=== PATIENT | female | born 1990 | race Hispanic/Latino ===

== ENCOUNTER 2017-03-08 22:03 | Emergency (ER) | payer SELFPAY ==
[2017-03-08] MEDS ORDERED: ONDANSETRON HCL 4 MG/2 ML VIAL ONE (22:28)
[2017-03-08] MEDS ORDERED: HYDROmorphone HCL 1 MG/ML SYR ONE (22:58)
[2017-03-08 23:00] LABS: BASOPHILS 0.2 % (0.0-2.0); EOSINOPHILS 1.4 % (0.0-6.0); EOSINOPHILS# 0.1 X 10^3uL (0.0-0.4); HEMATOCRIT 40.7 % (36.0-48.0); HEMOGLOBIN 13.7 g/dL (12.0-16.0); LYMPHOCYTES 49.6 % (20.0-40.0); MEAN CELL VOLUME 86.4 fL (80.0-100.0); MEAN CORPUS. HGB CONCENTRATION 33.7 g/dL (32.0-36.0); MEAN CORPUSCULAR HEMOGLOBIN 29.1 pg (29.0-35.0); MEAN PLATELET VOLUME 7.5 fL (7.4-10.4); MONOCYTES 5.4 % (2.0-10.0); MONOCYTES# 0.5 X 10^3uL (0.2-1.0); NEUTROPHILS 43.4 % (54.0-75.0); NEUTROPHILS# 4.1 X 10^3uL (2.6-6.7); RED BLOOD COUNT 4.71 X 10^6uL (4.20-6.10); RED CELL DISTRIBUTION WIDTH 13.1 % (11.5-14.5); WHITE BLOOD COUNT 9.5 X 10^3uL (3.9-10.7)
[2017-03-08 23:02] LABS: LYMPHOCYTES# 4.8 X 10^3uL (0.8-3.8)
[2017-03-08] MEDS ORDERED: oxyCODONE/APAP 5/325 MG PREPAC 1 TAB TABLET PO ONE (23:50)
[2017-03-08] MEDS ORDERED: KETOROLAC TROMETHAMINE 30 MG/ML VIAL ONE (23:54)
[2017-03-09] MEDS ORDERED: HYDROmorphone HCL 1 MG/ML SYR ONE ×2 (01:26)
--- NOTE | 2017-03-09 02:29 | ER NURSING DOCUMENTATION ---
Nurse's Notes [facility] Name:Farzana Durham Age:26 yrs Sex:Female :1990 Arrival Date:03/08/2017 Time:22:03 Bed3 Private MD:Sarah Stout Diagnosis:Inevitable Miscarriage Presentation: 03/08 22:06 Acuity: ROSIE 3 mk2 22:16 Notified ED Physician of Dr. Cifuentes notified. mk2 22:23 Presenting complaint: Patient states: Pt states she has been seeing Dr. Clemente for spotting mk2 and cramping with a new (estimated) 3/4 week . This is the patient's second . Pt denies heavy bleeding but suprapubic pain has been increasing today and is currently a 9/10. Pt has not taken anything for pain prior to arrival in the E.D. Pt denies vomiting and diarrhea but admits to nausea. Pt also states her " counts have been low per her O.B. Transition of care: Home. Risk considerations:. Notified ED Physician of. 22:23 Method Of Arrival: Wheelchair mk2 Triage Assessment: 22:26 General: Appears distressed, Behavior is crying. Pain: Complains of pain in suprapubic mk2 area Pain currently is 9 out of 10 on a pain scale. Neuro: No deficits noted. Cardiovascular: Rhythm is sinus tachycardia. Respiratory: Breath sounds are clear bilaterally. GI: No deficits noted. Reports lower abdominal pain, nausea, since increasing today. : Denies burning with urination. Derm:. 03/09 02:27 : Reports vaginal bleeding that is spotty since 7 days. 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 None - PMHx: None; - PSHx: None; - Tetanus: < 10 years. - Ebola Screening: : Patient negative for fever greater than or equal to 101.5 degrees Fahrenheit, and additional compatible Ebola Virus Disease symptoms. Patient denies exposure to infectious person. Patient denies travel to an Ebola-affected area in the 21 days before illness onset. No symptoms or risks identified at this time. . - Immunization history: Flu Vaccine < 1 year. - Social history: Smoking status: Patient uses tobacco products, current some day smoker. Patient/guardian denies using alcohol, street drugs. Screenin:29 Infectious Disease Risk None. Abuse screen: Denies threats or abuse. Nutritional 2 screening: No deficits noted. Assessment: 22:29 See Triage Assessment done by same RN. mk2 03/09 02:27 : mk2 Vital Signs: 03/08 22:07 BP 154 / 92; Pulse 109; Resp 20; Temp 97.8(O); Pulse Ox 98% on R/A; Weight 67.59 kg arc (R); Height 5 ft. 3 in. (160.02 cm) (R); Pain 9/10; 22:57 BP 105 / 62; Pulse 64; Resp 13; Pulse Ox 99% on 2 lpm NC; Pain 6/10; mk2 23:05 Pain 4/10; mk2 03/09 00:59 Pulse Ox 99% ; mk2 00:59 BP 106 / 64; Pulse 78; Resp 14; Pulse Ox 97% on 2 lpm NC; Pain 6/10; mk2 01:14 Pulse Ox 100% ; mk2 01:14 BP 109 / 62; Pain 7/10; mk2 01:39 Pulse Ox 99% ; mk2 01:43 BP 94 / 44 (auto/); mk2 01:59 Pulse Ox 98% ; mk2 01:59 Pain 4/10; mk2 02:00 BP 103 / 56 (auto/); mk2 03/08 22:07 Body Mass Index 26.39 (67.59 kg, 160.02 cm) arc ED Course: 03/08 22:05 Patient arrived in ED. ma1 22:05 Sarah Stout MD is Private Physician. ma1 22:06 Delores Burger, RN is Primary Nurse. mk2 22:06 Triage completed. mk2 22:09 Gray Cifuentes MD is Attending Physician. sc 22:29 Inserted peripheral IV: 20 gauge in right antecubital area and blood collected. mk2 22:29 Arm band placed on Bed in low position Call Light in Reach Gowned HOB Elevated Side mk2 rails up x1. 22:29 Valuables Remains with patient. Pulse ox on. NIBP on. Warm blanket given. mk2 22:45 Assist Provider Assist provider with pelvic exam:. mk2 22:53 RH positive reported by Marina in the lab. mk2 23:00 Oxygen Oxygen administration via nasal cannula @ 2L/min. mk2 23:07 Resting quietly. mk2 23:41 Willie Castellano MD is Referral Physician. sc 03/09 01:02 Appears tearful. Pt states she is unable to get out of bed and go home due to pain. MD knott is aware. Will monitor pt. 01:59 Resting quietly. Pt now asks to go home. mk2 Administered Medications: 03/08 22:22 Drug: NS 0.9% 1000 ml; Route: IV; Rate: 1000 bolus; Site: right antecubital; mk2 03/09 00:30 Follow up: IV Status: Completed infusion; IV Intake: 1000ml 2 03/08 22:23 Drug: Zofran 4 mg; Route: IVP; Infused Over: 2 mins; Site: right antecubital; mk2 22:44 Follow up: Response: No adverse reaction; Nausea is decreased mk2 22:53 Drug: Dilaudid 1 mg; Route: IVP; Site: right antecubital; mk2 22:57 Follow up: Response: Pain is decreased mk2 23:44 CANCELLED (Duplicate Order): Toradol 30 mg IVP once mk2 23:53 Drug: Toradol 30 mg; Route: IVP; Site: right antecubital; mk2 23:54 Follow up: Response: No adverse reaction 2 03/09 00:30 Drug: Dilaudid 1 mg; Route: IVP; Site: right antecubital; mk2 01:12 Follow up: Response: Pain is decreased mk2 00:43 Drug: HYDROcodone-acetaminophen (5mg/325 mg) 1-2 tabs 1 tabs; Route: PO; mk2 00:43 Follow up: Response: Pharmacy closed - take home med pack mk2 00:58 Drug: methotrexate 85 mg; Route: IM; Site: left gluteus; mk2 01:12 Follow up: Response: No adverse reaction mk2 01:16 Drug: Dilaudid 1 mg; Route: IVP; Site: right antecubital; mk2 01:42 Follow up: Response: Pain is decreased mk2 01:30 Drug: NS 0.9% 1000 ml; Route: IV; Rate: bolus; Site: right antecubital; mk2 02:16 Follow up: IV Status: Completed infusion; IV Intake: 1000ml mk2 02:25 Drug: Zofran 4 mg; Route: IVP; Infused Over: 2 mins; Site: right antecubital; mk2 02:25 Follow up: Response: No adverse reaction mk2 Intake: 00:30 IV: 1000ml; Total: 1000ml. mk2 02:16 IV: 1000ml; Total: 2000ml. mk2 Outcome: 03/08 23:42 Discharge ordered by . ct 03/09 01:59 Discharge instructions given to patient, family, Instructed on discharge instructions, mk2 follow up and referral plans. medication usage, no drinking with medication, no driving heavy equipment. Prescriptions given X 1. IV D/Micheal 02:25 Discharged to home via wheelchair. mk2 02:25 Condition: stable 02:25 Discharge Assessment: Pt remains in pain and nauseated and appears pale but states she wants and is ready to go home. Pt able to ambulate around the room with assistance. Boyfriend states he will be with her throughout the night. 02:29 Patient left the ED. mk2 Signatures: Gray Cifuentes MD MD sc Kruger, Meg, RN RN mk2 Natalie Cifuentes, Susan [facility]
--- NOTE | 2017-03-09 02:29 | ER PHYSICIAN DOCUMENTATION ---
Physician Documentation [facility] Name:Farzana Durham Age:26 yrs Sex:Female :1990 Arrival Date:03/08/2017 Time:22:03 Bed3 Private MD:Sarah Stout ED, Scott Disposition: 03/08/17 23:42 Discharged to Home/Self Care. Impression: Inevitable Miscarriage. - Condition is Good. - Discharge Instructions: MISCARRIAGE Inevitable - , Missed (Inevitable). - Prescriptions for Hydrocodone- Acetaminophen 5-325 mg Oral Tablet - take 1 tablet by ORAL route every 6 hours As needed; 20 tablet. - Medical Reconciliation form form. - Follow up: Willie Castellano MD; When: 2 - 3 days; Reason: Continuance of care. - Problem is new. - Symptoms have improved. HPI: 03/08 22:45 This 26 yrs old Female presents to ER via Wheelchair with complaints of sc Vaginal Bleeding, Abdominal Pain. 22:48 The patient presents with pelvic pain, that is located in/on the suprapubic area. sc Onset: The symptoms/episode began/occurred 4 day(s) ago. Modifying factors: The symptoms are alleviated by nothing. Associated signs and symptoms: Pertinent positives: vaginal bleeding, Pertinent negatives: dysuria, fever, hematuria, urinary frequency. Ectopic Risk: No risk factors noted. recent iud. Severity of symptoms: At their worst the symptoms were severe. The patient is sexually active, reportedly has a single partner. The patient's method of control includes BCP. 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 None - PMHx: None; - PSHx: None; - Tetanus: < 10 years. - Ebola Screening: : Patient negative for fever greater than or equal to 101.5 degrees Fahrenheit, and additional compatible Ebola Virus Disease symptoms. Patient denies exposure to infectious person. Patient denies travel to an Ebola-affected area in the 21 days before illness onset. No symptoms or risks identified at this time. . - Immunization history: Flu Vaccine < 1 year. - Social history: Smoking status: Patient uses tobacco products, current some day smoker. Patient/guardian denies using alcohol, street drugs. ROS: 22:50 Positive for pelvic pain, vaginal bleeding, Negative for foul smelling urine, sc vaginal discharge. 22:50 Constitutional: Negative for fever, chills, and weight loss. sc Eyes: Negative for injury, pain, redness, and discharge. ENT: Negative for injury, pain, and discharge. Neck: Negative for injury, pain, and swelling. Cardiovascular: Negative for chest pain, palpitations, and edema. Respiratory: Negative for shortness of breath, cough, wheezing, and pleuritic chest pain. Abdomen/GI: Negative for abdominal pain, nausea, vomiting, diarrhea, and constipation. Back: Negative for injury and pain. MS/Extremity: Negative for injury and deformity. Skin: Negative for injury, rash, and discoloration. 22:50 Neuro: Negative for headache, weakness, numbness, tingling, and seizure. Exam: Constitutional: This is a well developed, well nourished patient who is awake, alert, and in no acute distress. Head/Face: Normocephalic, atraumatic. Eyes: Pupils equal round and reactive to light, extra-ocular motions intact. Lids and lashes normal. Conjunctiva and sclera are non-icteric and not injected. Cornea within normal limits. Periorbital areas with no swelling, redness, or edema. ENT: Nares patent. No nasal discharge, no septal abnormalities noted. Tympanic membranes are normal and external auditory canals are clear. Oropharynx with no redness, swelling, or masses, exudates, or evidence of obstruction, uvula midline. Mucous membranes moist. Neck: Trachea midline, no thyromegaly or masses palpated, and no cervical lymphadenopathy. Supple, full range of motion without nuchal rigidity, or vertebral point tenderness. No meningismus. Chest/axilla: Normal chest wall appearance and motion. Nontender with no deformity. No lesions are appreciated. Cardiovascular: Regular rate and rhythm with a normal S1 and S2. No gallops, murmurs, or rubs. Normal PMI, no JVD. No pulse deficits. Respiratory: Lungs have equal breath sounds bilaterally, clear to auscultation and percussion. No rales, rhonchi or wheezes noted. No increased work of breathing, no retractions or nasal flaring. 22:51 Back: No spinal tenderness. No costovertebral tenderness. Full range of motion. sc 22:51 Abdomen/GI: Inspection: abdomen appears normal, Bowel sounds: normal, Palpation: moderate abdominal tenderness, in the suprapubic area. 22:51 : CVA tenderness, is absent, Pelvic Exam: External exam: is normal, bimanual exam reveals cervical motion tenderness, os that is closed, uterine tenderness, right adnexal tenderness, left adnexal tenderness, no adnexal mass on right, no adnexal mass on left. Vital Signs: 22:07 BP 154 / 92; Pulse 109; Resp 20; Temp 97.8(O); Pulse Ox 98% on R/A; Weight 67.59 kg arc (R); Height 5 ft. 3 in. (160.02 cm) (R); Pain 9/10; 22:57 BP 105 / 62; Pulse 64; Resp 13; Pulse Ox 99% on 2 lpm NC; Pain 6/10; mk2 23:05 Pain 4/10; mk2 03/09 00:59 Pulse Ox 99% ; mk2 00:59 BP 106 / 64; Pulse 78; Resp 14; Pulse Ox 97% on 2 lpm NC; Pain 6/10; mk2 01:14 Pulse Ox 100% ; mk2 01:14 BP 109 / 62; Pain 7/10; mk2 01:39 Pulse Ox 99% ; mk2 01:43 BP 94 / 44 (auto/); mk2 01:59 Pulse Ox 98% ; mk2 01:59 Pain 4/10; mk2 02:00 BP 103 / 56 (auto/); mk2 03/08 22:07 Body Mass Index 26.39 (67.59 kg, 160.02 cm) arc MDM: 03/08 22:26 Patient medically screened. sc 22:52 Differential diagnosis: ectopic , inevitable Ab, pelvic inflammatory disease, sc ruptured ectopic . Data reviewed: vital signs, nurses notes. Data reviewed: old medical records, lab test result(s), and as a result, I will continue to observe the patient, prescribe pain medication. Counseling: I had a detailed discussion with the patient and/or guardian regarding: the historical points, exam findings, and any diagnostic results supporting the discharge/admit diagnosis, lab results, the need for outpatient follow up. 23:41 Physician consultation: Willie Castellano MD was called at 23:41, and will see patient sc in ED, immediately. 03/08 22:54 Order name: HCG, QUANTITATIVE; Complete Time: 22:56 EDMS 03/08 22:56 Interpretation: Abnormal: HCG, QUANTITATIVE 52. de 03/08 23:03 Order name: CBC AUTO DIF, MDIF/RMOR IF IND; Complete Time: 23:04 EDMS 03/08 23:04 Interpretation: Normal. de 03/08 23:00 Order name: Oxygen; Complete Time: 23:00 2 Dispensed Medications: 22:22 Drug: NS 0.9% 1000 ml; Route: IV; Rate: 1000 bolus; Site: right antecubital; 2 03/09 00:30 Follow up: IV Status: Completed infusion; IV Intake: 1000ml 2 03/08 22:23 Drug: Zofran 4 mg; Route: IVP; Infused Over: 2 mins; Site: right antecubital; mk2 22:44 Follow up: Response: No adverse reaction; Nausea is decreased mk2 22:53 Drug: Dilaudid 1 mg; Route: IVP; Site: right antecubital; mk2 22:57 Follow up: Response: Pain is decreased mk2 23:44 CANCELLED (Duplicate Order): Toradol 30 mg IVP once mk2 23:53 Drug: Toradol 30 mg; Route: IVP; Site: right antecubital; mk2 23:54 Follow up: Response: No adverse reaction 2 03/09 00:30 Drug: Dilaudid 1 mg; Route: IVP; Site: right antecubital; mk2 01:12 Follow up: Response: Pain is decreased mk2 00:43 Drug: HYDROcodone-acetaminophen (5mg/325 mg) 1-2 tabs 1 tabs; Route: PO; mk2 00:43 Follow up: Response: Pharmacy closed - take home med pack mk2 00:58 Drug: methotrexate 85 mg; Route: IM; Site: left gluteus; mk2 01:12 Follow up: Response: No adverse reaction mk2 01:16 Drug: Dilaudid 1 mg; Route: IVP; Site: right antecubital; mk2 01:42 Follow up: Response: Pain is decreased mk2 01:30 Drug: NS 0.9% 1000 ml; Route: IV; Rate: bolus; Site: right antecubital; mk2 02:16 Follow up: IV Status: Completed infusion; IV Intake: 1000ml mk2 02:25 Drug: Zofran 4 mg; Route: IVP; Infused Over: 2 mins; Site: right antecubital; mk2 02:25 Follow up: Response: No adverse reaction mk2 Signatures: Gray Cifuentes MD MD sc Kruger, Meg, RN RN mk2
[2017-03-09] MEDS ORDERED: ONDANSETRON HCL 4 MG/2 ML VIAL ONE (02:30)
== END 2017-03-09 02:29 | disposition home or self-care (01) ==
LOC: ER 22:03
DX: O20.0 Threatened abortion (principal)
CPT/HCPCS: 84702; 85025; 96361; 96372; 96374; 96375; 96376; 99284; J1170; J1885; J2405

== ENCOUNTER 2017-03-10 19:01 | Emergency (ER) | payer SELFPAY ==
[2017-03-10 19:19] LABS: BASOPHIL# 0.1 X 10^3uL (0.0-0.1); BASOPHILS 0.6 % (0.0-2.0); EOSINOPHILS 0.8 % (0.0-6.0); EOSINOPHILS# 0.1 X 10^3uL (0.0-0.4); HEMATOCRIT 36.5 % (36.0-48.0); HEMOGLOBIN 12.6 g/dL (12.0-16.0); LYMPHOCYTES 43.4 % (20.0-40.0); LYMPHOCYTES# 4.3 X 10^3uL (0.8-3.8); MEAN CELL VOLUME 86.1 fL (80.0-100.0); MEAN CORPUS. HGB CONCENTRATION 34.4 g/dL (32.0-36.0); MEAN CORPUSCULAR HEMOGLOBIN 29.6 pg (29.0-35.0); MEAN PLATELET VOLUME 7.4 fL (7.4-10.4); MONOCYTES 3.6 % (2.0-10.0); MONOCYTES# 0.4 X 10^3uL (0.2-1.0); NEUTROPHILS 51.6 % (54.0-75.0); RED BLOOD COUNT 4.24 X 10^6uL (4.20-6.10); RED CELL DISTRIBUTION WIDTH 12.9 % (11.5-14.5); WHITE BLOOD COUNT 9.9 X 10^3uL (3.9-10.7)
[2017-03-10] MEDS ORDERED: HYDROmorphone HCL 1 MG/ML SYR ONE ×2 (19:52→20:09)
[2017-03-10] MEDS ORDERED: KETOROLAC TROMETHAMINE 30 MG/ML VIAL ONE (20:28)
[2017-03-10] MEDS ORDERED: oxyCODONE/APAP 5/325 MG PREPAC 1 TAB TABLET PO ONE (20:28)
[2017-03-10] MEDS ORDERED: ONDANSETRON HCL 4 MG/2 ML VIAL ONE (20:34)
--- NOTE | 2017-03-10 20:34 | ER NURSING DOCUMENTATION ---
Nurse's Notes [facility] Name:Farzana Durham Age:26 yrs Sex:Female :1990 Arrival Date:03/10/2017 Time:19:01 Bed3 Private MD:Willie Castellano Diagnosis:Inevitable Miscarriage Presentation: 03/10 19:08 Acuity: ROSIE 3 rh 19:08 Presenting complaint: Patient states: Pt is unsure how she is currently. Pt rh states she had labs done by DR. Clemente last Friday which showed very low quantitative. She said she had a shot last Friday from Dr. Clemente to induce an inevitable . Pt c/o lower uterine/abdominal pain. Pt has had very mild bleeding when she pees. Transition of care: Home. 19:08 Method Of Arrival: Private Vehicle Triage Assessment: 19:11 General: Appears in no apparent distress, Behavior is cooperative. rh 19:12 Pain: Complains of pain in suprapubic area. EENT: Oral mucosa is moist. Neuro: Level of rh Consciousness is awake, alert, obeys commands, Reports dizziness. Cardiovascular: Capillary refill < 3 seconds Chest pain is denied. Respiratory: Airway is patent Respiratory effort is even, unlabored, Respiratory pattern is regular, symmetrical. GI: Abdomen is non- distended Denies nausea. : Reports vaginal bleeding that is bright red light flow spotty. Derm: Skin is intact, is healthy with good turgor, Skin is pink, warm & dry. 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 None - PMHx: NONE; Inevitable Miscarriage (March 08, 2017); - PSHx: NONE; - Tetanus: < 10 years. - Ebola Screening: : Patient negative for fever greater than or equal to 101.5 degrees Fahrenheit, and additional compatible Ebola Virus Disease symptoms. - Immunization history: Flu Vaccine < 1 year. - Social history: Smoking status: Patient states former smoker of tobacco. Screenin:15 Infectious Disease Risk None. Abuse screen: Denies threats or abuse. Denies injuries rh from another. Nutritional screening: No deficits noted. Assessment: 19:15 See Triage Assessment done by same RN. 19:15 Reassessment: DR. Clemente here to assess patient . rh Vital Signs: 19:13 BP 106 / 79 Standing; Pulse 72; Resp 16; Temp 98.1(O); Pulse Ox 98% on R/A; Weight rh 67.59 kg; Height 5 ft. 3 in. (160.02 cm); Pain 8/10; 19:13 BP 116 / 78 Sitting; Pulse 75; rh 19:13 BP 120 / 72 Supine; Pulse 74; rh 19:59 BP 106 / 63; Pulse 69; Resp 17; Pulse Ox 95% on R/A; Pain 8/10; rh 20:05 Pulse 68; Resp 16; Pulse Ox 98% on 1 lpm NC; Pain 5/10; rh 20:33 BP 103 / 74; Pulse 71; Resp 15; Pulse Ox 94% on R/A; Pain 5/10; rh 19:13 Body Mass Index 26.39 (67.59 kg, 160.02 cm) rh ED Course: 19:00 Notified ED Physician of patient's arrival and chief complaint. Dr. Kinsey notified. rh 19:02 Patient arrived in ED. ds 19:03 Willie Castellano MD is Private Physician. ds 19:06 Larry Kinsey MD is Attending Physician. adolph 19:08 Lula Chan is Primary Nurse. rh 19:08 Triage completed. rh 19:12 Labs drawn. (by ED staff). Sent per order to lab. Inserted peripheral IV: 18 gauge in lc left antecubital area and blood collected. 19:15 Valuables Remains with patient Patient has correct armband on for positive rh identification. Placed in gown. Bed in low position. Call light in reach. Side rails up X 1. Family accompanied patient. 20:13 Willie Castellano MD is Referral Physician. jm 20:32 Discontinued IV intact, bleeding controlled, pressure dressing applied, No mv redness/swelling at site. Administered Medications: 19:47 Drug: Dilaudid 0.5 mg; Route: IVP; Site: left antecubital; rh 19:59 Follow up: Response: Pain is unchanged, physician notified rh 19:59 Drug: Dilaudid 0.5 mg; Route: IVP; Site: left antecubital; rh 20:05 Follow up: Response: Pain is decreased rh 20:25 Drug: Toradol 30 mg; Route: IVP; Site: left antecubital; mv 20:33 Follow up: Response: No adverse reaction; Pain is decreased 20:28 Drug: Zofran 4 mg; Route: IVP; Infused Over: 2 mins; Site: left antecubital; mv 20:33 Follow up: Response: Nausea is decreased 20:31 Drug: Percocet Tablet (5 mg-325 mg) 6 tabs; {Note: given for patient to take at home .} mv Route: PO; 20:33 Follow up: Response: Pharmacy closed - take home med pack Outcome: 20:14 Discharge ordered by . 20:33 Discharged to home ambulatory. 20:33 Condition: improved 20:33 Discharge Assessment: Patient awake, alert and oriented x 3. No cognitive and/or functional deficits noted. Patient verbalized understanding of disposition instructions. 20:33 Discharge instructions given to patient, Parent Instructed on discharge instructions, follow up and referral plans. medication usage, Demonstrated understanding of instructions. 20:33 IV D/Micheal 20:34 Patient left the ED. 03/11 15:59 Discharge F/U Call: Unable to reach: no answer Overall Care on a scale of 1-10 with 10 being the best care, you rate our care as: Other comments: DID HAVE APPT WITH DR Clemente TODAY What is the one thing you feel we could do to improve? Signatures: Sussy Franks RN RN lc Srot, Deidra, Reg Reg ds Meyer, John, MD MD jm Hofsess, Rachel rh vogel, margaux
--- NOTE | 2017-03-10 20:34 | ER PHYSICIAN DOCUMENTATION ---
Physician Documentation [facility] Name:Farzana Durham Age:26 yrs Sex:Female :1990 Arrival Date:03/10/2017 Time:19:01 Bed3 Private MD:Willie Castellano ED, John Disposition: 03/10/17 20:14 Discharged to Home/Self Care. Impression: Inevitable Miscarriage. - Condition is Fair. - Discharge Instructions: MISCARRIAGE Inevitable - , Missed (Inevitable). - Medical Reconciliation form form. - Follow up: Willie Castellano MD; When: Tomorrow; Reason: Continuance of care. - Problem is an acute exacerbation. - Symptoms have improved. HPI: 03/10 19:25 This 26 yrs old Female presents to ER via Private Vehicle with complaints of jm Abdominal Pain. 19:25 The patient presents with abdominal pain in the lower abdomen. Onset: The jm symptoms/episode began/occurred 3 day(s) ago, and became worse today. The symptoms do not radiate. Associated signs and symptoms: Pertinent negatives: fever, vomiting, vomiting blood. The symptoms are described as sharp. Modifying factors: the symptoms are aggravated by nothing. Severity of pain: in the emergency department the pain is unchanged. Risk factors for ectopic : intrauterine device (IUD) use, Dr. Clemente is working here up. 19:[address] Clemente who has been following her HCG quants to come in for eval and labs. Pt jm reports no vag bleeding but does have some cramping. LMP was early January. . 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 None - PMHx: NONE; Inevitable Miscarriage (March 08, 2017); - PSHx: NONE; - Tetanus: < 10 years. - Ebola Screening: : Patient negative for fever greater than or equal to 101.5 degrees Fahrenheit, and additional compatible Ebola Virus Disease symptoms. - Immunization history: Flu Vaccine < 1 year. - Social history: Smoking status: Patient states former smoker of tobacco. Vital Signs: 19:13 BP 106 / 79 Standing; Pulse 72; Resp 16; Temp 98.1(O); Pulse Ox 98% on R/A; Weight rh 67.59 kg; Height 5 ft. 3 in. (160.02 cm); Pain 8/10; 19:13 BP 116 / 78 Sitting; Pulse 75; rh 19:13 BP 120 / 72 Supine; Pulse 74; rh 19:59 BP 106 / 63; Pulse 69; Resp 17; Pulse Ox 95% on R/A; Pain 8/10; rh 20:05 Pulse 68; Resp 16; Pulse Ox 98% on 1 lpm NC; Pain 5/10; rh 20:33 BP 103 / 74; Pulse 71; Resp 15; Pulse Ox 94% on R/A; Pain 5/10; rh 19:13 Body Mass Index 26.39 (67.59 kg, 160.02 cm) rh MDM: 19:06 Patient medically screened. 19:28 ED course: AT this point in the encounter, Dr. Clemente has arrived and told me not to see this pt. . 03/10 19:22 Order name: CBC AUTO DIF, MDIF/RMOR IF IND EDMS 03/10 19:46 Order name: HCG, QUANTITATIVE EDMS 03/10 19:11 Order name: Iv Saline Lock; Complete Time: 19:11 rh 03/10 19:47 Order name: Pulse Ox Continuous; Complete Time: 19:47 rh 03/10 20:04 Order name: Oxygen; Complete Time: 20:05 rh Dispensed Medications: 19:47 Drug: Dilaudid 0.5 mg; Route: IVP; Site: left antecubital; rh 19:59 Follow up: Response: Pain is unchanged, physician notified rh 19:59 Drug: Dilaudid 0.5 mg; Route: IVP; Site: left antecubital; rh 20:05 Follow up: Response: Pain is decreased rh 20:25 Drug: Toradol 30 mg; Route: IVP; Site: left antecubital; mv 20:33 Follow up: Response: No adverse reaction; Pain is decreased rh 20:28 Drug: Zofran 4 mg; Route: IVP; Infused Over: 2 mins; Site: left antecubital; mv 20:33 Follow up: Response: Nausea is decreased rh 20:31 Drug: Percocet Tablet (5 mg-325 mg) 6 tabs; {Note: given for patient to take at home .} mv Route: PO; 20:33 Follow up: Response: Pharmacy closed - take home med pack Signatures: Larry Kinsey MD MD jm Hofsess, Rachel rh vogel, margaux mv
== END 2017-03-10 20:34 | disposition home or self-care (01) ==
LOC: ER 19:01
DX: O20.0 Threatened abortion (principal)
CPT/HCPCS: 84702; 85025; 96374; 96375; 99284; J1170; J1885; J2405

== ENCOUNTER 2017-03-11 10:13 | Observation (INO) | payer SELFPAY ==
[2017-03-11] MEDS ORDERED: HYDROmorphone HCL 1 MG/ML SYR IV PRN ×6 (10:21→16:44)
[2017-03-11] MEDS ORDERED: ONDANSETRON HCL 4 MG/2 ML VIAL IV PRN ×7 (10:22→17:26)
[2017-03-11] MEDS ORDERED: ACETAMINOPHEN 1,000 MG/100 ML VIAL IV SCH ×5 (10:30→22:30)
[2017-03-11] MEDS ORDERED: DEXTROSE 5% LACTATED RINGERS 1,000 ML IV SCH ×5 (11:00→16:44)
[2017-03-11] MEDS ORDERED: LACTATED RINGERS 1,000 ML IV ONE (11:00)
[2017-03-11] MEDS ORDERED: MIDAZOLAM HCL 2 MG/2 ML SYR IV ONE ×3 (14:56→15:09)
[2017-03-11] MEDS ORDERED: FENTANYL 100 MCG/2 ML VIAL IV ONE (14:56)
[2017-03-11] MEDS ORDERED: LIDOCAINE HCL 1% 20 ML VIAL SUBCUT ONE ×4 (14:56→16:44)
[2017-03-11] MEDS ORDERED: FAMOTIDINE IN SALINE, ISO-OSM 20 MG/50 ML PIGGYBACK IV SCH ×3 (15:00→16:44)
[2017-03-11] MEDS ORDERED: LACTATED RINGERS 1,000 ML IV SCH ×5 (15:00→17:00)
[2017-03-11] MEDS: FENTANYL 100 MCG/2 ML VIAL IV ONE ×2 (15:01→15:35)
[2017-03-11] MEDS ORDERED: MIDAZOLAM HCL 2 MG/2 ML VIAL ONE (15:16)
[2017-03-11] MEDS ORDERED: PHENYLEPHRINE HCL 10,000 MCG/ML VIAL ONE (15:27)
[2017-03-11] MEDS ORDERED: SUCCINYLCHOLINE CHLORIDE 200 MG/10 ML VIAL ONE (15:27)
[2017-03-11] MEDS ORDERED: EPHEDrine SULFATE 50 MG/ML VIAL ONE (15:27)
[2017-03-11] MEDS ORDERED: NORMAL SALINE FLUSH 20 ML ONE ×2 (15:27→16:17)
[2017-03-11] MEDS ORDERED: ROCURONIUM BROMIDE 50 MG/5 ML VIAL IV ONE (15:28)
[2017-03-11] MEDS ORDERED: VASOPRESSIN 20 UNITS/ML VIAL ONE (16:01)
[2017-03-11 16:27] LABS: ABO GROUP TYPE A; ANTIBODY SCREEN NEGATIVE; RH TYPE POSITIVE
[2017-03-11] MEDS ORDERED: SUGAMMADEX SODIUM 200 MG/2 ML VIAL IV ONE (16:39)
[2017-03-11] MEDS ORDERED: FENTANYL 100 MCG/2 ML VIAL IV PRN (16:42)
[2017-03-11] MEDS ORDERED: MORPHINE SULFATE 10 MG/ML SYR IV PRN (16:42)
--- NOTE | 2017-03-11 17:18 | PROCEDURE NOTE: GYN ---
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 Post-op diagnosis: other (Left tubal ) Procedure: Laparoscopic treatment of ectopic Findings: 50 ml of blood and clot in pelvis. POC attached to but not inplanted into left ovary, edema of left fallopian tube without ecchymosis, rupture or bleeding. No active bleeding at time of surgery. Anesthesia Type: General Physician: YANETH HYMAN Estimated Blood Loss: 50 Pathology: sent Sponge and instrument counts: correct Condition: stable Disposition: PACU Narrative: The patient was taken to the operating theater and placed on the operating table. General endotracheal anesthesia was induced. She is placed in dorsal lithotomy position using the Eliud stirrups. Her abdomen, vagina and perineum were prepped, her bladder drained with straight catheter, she is draped in sterile fashion. A Hulka tenaculum is placed in the cervix. An umbilical skin incision is made and carried sharply to the fascia and the fascia is scored. A 5 mm trocar is inserted into the abdominal cavity. The abdomen is insufflated with carbon dioxide. A suprapubic stab wound was made through which a second 5 mm trocar is entered into the abdominal cavity under direct visualization. The pelvis is inspected, with findings as above. After close irrigation and aspiration of the blood in the pelvis I noted the clot and tissue adhering to the left ovary. There was no evidence of tubal rupture and no bleeding from the fimbria of the tube. I placed a left lower quadrant incision through which a 12 mm trocar is entered into the abdomen under direct visualization. The sclerotic ovarian capsule of the left ovary is then opened. No deep cyst was identified. I gently removed the clot and tissue from the surface of the ovary, there was no evidence of implantation into the mesosalpinx or the ovary. The specimen is placed in an endopouch, removed and submitted to pathology. The pelvis is copiously irrigated and again inspected, no areas of bleeding are noted all consistent with a probable "tubal ". The small amount of blood in the upper abdomen is then aspirated. The instruments are removed and the carbon dioxide allowed to escape via the trocar sleeves. The trocars are removed from the abdomen. The left lower quadrant fascial incision is closed with a figure of eight 0 Vicryl suture. The skin is then closed with a 4-0 Monocryl subcuticular suture. The smaller incisions are closed with interrupted [id number] 4-0 Monocryl sutures. Sterile dressings were applied. The Hulka tenaculum is removed. The patient is placed supine on the operating table and awakened by anesthesia. She is taken to recovery room in good condition
[2017-03-11] MEDS: HYDROmorphone HCL 1 MG/ML SYR IV PRN ×2 (17:28→21:24)
[2017-03-11] MEDS: IBUPROFEN 600 MG TABLET PO PRN (18:33)
[2017-03-11] MEDS: DEXTROSE 5% LACTATED RINGERS 1,000 ML IV SCH ×2 (18:34→22:50)
[2017-03-11] MEDS: ACETAMINOPHEN 1,000 MG/100 ML VIAL IV SCH (22:37)
[2017-03-12] MEDS: HYDROmorphone HCL 1 MG/ML SYR IV PRN (03:25)
[2017-03-12] MEDS: ACETAMINOPHEN 1,000 MG/100 ML VIAL IV SCH (04:40)
[2017-03-12 05:50] VITALS: BP 87/57; PULSE 54; RESP 14; TEMP 98.8
[2017-03-12] MEDS: IBUPROFEN 600 MG TABLET PO PRN (05:50)
[2017-03-12] MEDS: DEXTROSE 5% LACTATED RINGERS 1,000 ML IV SCH (05:51)
[2017-03-12 06:19] LABS: BASOPHILS 0.4 % (0.0-2.0); EOSINOPHILS 1.9 % (0.0-6.0); EOSINOPHILS# 0.1 X 10^3uL (0.0-0.4); HEMATOCRIT 27.1 % (36.0-48.0); HEMOGLOBIN 9.3 g/dL (12.0-16.0); LYMPHOCYTES 41.8 % (20.0-40.0); LYMPHOCYTES# 2.2 X 10^3uL (0.8-3.8); MEAN CORPUS. HGB CONCENTRATION 34.4 g/dL (32.0-36.0); MEAN CORPUSCULAR HEMOGLOBIN 29.9 pg (29.0-35.0); MEAN PLATELET VOLUME 7.5 fL (7.4-10.4); MONOCYTES 3.7 % (2.0-10.0); MONOCYTES# 0.2 X 10^3uL (0.2-1.0); NEUTROPHILS 52.2 % (54.0-75.0); NEUTROPHILS# 2.8 X 10^3uL (2.6-6.7); RED BLOOD COUNT 3.11 X 10^6uL (4.20-6.10); RED CELL DISTRIBUTION WIDTH 12.8 % (11.5-14.5); WHITE BLOOD COUNT 5.3 X 10^3uL (3.9-10.7)
--- NOTE | 2017-03-12 08:10 | DC SUMMARY: Obstetrical/GYN ---
Discharge Summary: Surg/OB Provider: Date of Admission: 03/11/17 Admitting Provider: YANETH CASTELLANO MD Attending Provider: YANETH CASTELLANO MD Discharging Provider: YANETH CASTELLANO MD Primary Care Provider: Discharge Date: 03/12/17 Hospital Course: Ms. CORTES is a 26 year old female admitted for treatment of a probably ectopic . She had received Methotrexate in the ED on Friday but she had increasing pain and falling hemoglobin worrisome for possible rupture. Diagnostic laparoscopy revealed a tubal and no rupture of the fallopian tube. Postoperatively she did well with good return of bowel and bladder function. She is discharged to home on the first postoperative day in good condition. Discharge - Patient/Caregiver Discharge Instructions Activity Level: Pelvic rest Diet: Regular Additional Instructions: Yaneth Castellano M.D. [address] [place] [address] PHONE [phone] FAX [phone] Reviewed 03/2015 Post Laparoscopy Instructions 1. Please make an appointment for your first post operative check up to see me one week from the date of surgery. Call the clinic to make this appointment. 2. If needed you will receive a prescription for pain pills upon hospital discharge. I recommend you alternate these with ibuprofen. Use your pills as needed. If strength is inadequate, please contact me. 3. Do not drive a car or operate machinery as long as you are taking narcotic pain medication. 4. You may remove your bandages and shower after 24 hours. 5. It would be best for you to restrict your activities for at least 24 hours. As you feel up to it, you may begin to increase your activity. Use your own judgement. 6. No pelvic activity. No tampons, douching or intercourse until after your post operative check up. 7. Report any persistent vomiting or fever above 100.5 degrees immediately. 8. A small amount of bleeding from the incisions and/or vagina is normal. Contact me if bleeding is excessive. Use mini or maxi pads, no tampons. 9. For shoulder pain (very common), raise your buttocks above the level of your shoulders. Keep your knees bent and rest in this position for several minutes. 10. I can be reached through the hospital charge nurse at ([phone]) or the Hospital Level [facility] Inside Grinder ([phone]). If no one answers, please leave your name and number and expect a return phone call in 30 minutes. Yaneth Castellano M.D. 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 Exam - Latest Vital Signs and I&O Latest Vital Signs/I&O: Vital Signs Temp 37.1 C 03/12/17 05:47 Pulse 54 L 03/12/17 05:47 Resp 14 03/12/17 05:47 BP 87/57 03/12/17 05:47 Pulse Ox 98 03/12/17 05:47 Intake & Output 03/11/17 03/12/17 03/12/17 17:59 05:59 17:59 Intake Total 1981 Output Total 250 Balance 1731 Weight 67 kg Intake: IV 1631 RIGHT WRIST 1631 Oral 350 Output: Urine 250 Other: Urine Appearance Clear Clear Clots Urine Color Yellow Bright Red Voiding Method Toilet Toilet # Voids 2 # Bowel Movements 0 - Exam Lungs: Bilateral: normal Heart Rhythm: Present: regular Extremities: Absent: tenderness Abdomen: Present: soft, tenderness (mild at site of LLQ incision) Bowel sounds: present Incision: Present: dressed Discharge Summary Data - Medication History Medication History: Home Medications Other [No Known Home Medications] 03/11/17 Inpatient Medications 03/11/17 17:26 Dextrose 5% Lactated Ringers [D5 Lr 1000 ml] 1,000 ml IV CONT HYDROmorphone HCL [dilaUDID] 1 mg IV Q4H PRN Ibuprofen [Motrin] 600 mg PO Q6H PRN Ondansetron HCl [Zofran] 4 mg IV Q6H PRN oxyCODONE HCL IR [Oxy Ir] 5 mg PO Q3H PRN 03/11/17 22:30 Acetaminophen [Ofirmev Inj] 1,000 mg IV Q6H Procedures and tests throughout hospitalization: Completed Lab Orders 03/11/17 15:08 ABO GROUP [HEM] Urgent RH TYPE [HEM] Urgent Type & Screen [ANTIBODY SCREEN] [HEM] Urgent 03/12/17 05:40 CBC AUTO DIF, MDIF/RMOR IF IND [HEM] AMDRAW HCG, QUANTITATIVE [CHEM] AMDRAW Pending Orders 03/11/17 10:19 Anesthesia Type . NPO After midnight 0000 No Antibiotics indicated . Pre-op by anesthesia . Resuscitation Status Routine Sequential Compression Device WHILE IN BED 03/11/17 10:20 Admit: Observation Routine 03/11/17 10:21 Activity [Activity: As Tolerated] PRN 03/11/17 10:22 Vital Signs ROUTINE VITALS (Q4H) 03/11/17 14:56 Insert Peripheral IV ONCE 03/11/17 16:42 Dev hugger if temp <34 C PRN Notify Anesthesia . Titrate Oxygen TITRATE B/W 90-95% Warm blankets if temp<36 C PRN 03/11/17 17:26 Dextrose 5% Lactated Ringers [D5 Lr 1000 ml] 1,000 ml IV CONT HYDROmorphone HCL [dilaUDID] 1 mg IV Q4H PRN Ibuprofen [Motrin] 600 mg PO Q6H PRN Ondansetron HCl [Zofran] 4 mg IV Q6H PRN oxyCODONE HCL IR [Oxy Ir] 5 mg PO Q3H PRN 03/11/17 22:30 Acetaminophen [Ofirmev Inj] 1,000 mg IV Q6H 03/11/17 Dinner DIET [Regular] [DIET] Labs on day of discharge: Labs from last 24 hours 03/12/17 03/11/17 05:40 15:08 WBC 5.3 RBC 3.11 L Hgb 9.3 L Hct 27.1 L MCV 87.0 MCH 29.9 MCHC 34.4 RDW 12.8 Plt Count 235 MPV 7.5 Neutrophils % 52.2 L Lymphocytes % 41.8 H Eosinophils % 1.9 Basophils % 0.4 Neutrophils # 2.8 Lymphocytes # 2.2 Monocytes 3.7 Monocytes # 0.2 Eosinophils # 0.1 Basophils # 0.0 Beta HCG, Quant 61 ABO Group Type a Rh Factor Positive Antibody Screen Negative
[2017-03-12 10:10] VITALS: O2SAT 94
--- NOTE | 2017-03-18 14:56 | PREOPERATIVE H&P ---
History of Present Illness (Willie Castellano M.D.; 03/11/2017 9:47 AM) The patient is a 26 year old female who presents for evaluation of a possible miscarriage. The patient is here for a follow-up (returned to ER last night but pain is unmanageable) visit. Last menstrual period: Date: (01/19/2017). The current gestational age is 6 weeks. She reports regular periods (but did take a Plan B in mid December after her IUD was removed in early December). The bleeding associated with the miscarriage has been minimal and continues. The patient denies passage of any tissue. The symptoms have been associated with abdominal pain. Seen in ER Friday evening for episode of severe pain, dramatically better after treatment, as quant only nominally increased given methotrexate. Spoke with patient Friday by phone and she noted pain was essentially resolved and had only taken 2 of the 5 Percocet tablets she was sent home with from ER. She did not feel well on Friday and then about 6:30 she had onset of another episode of severe abdominal pain, only this time more periumbilical. 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 She agreed with continued conservative management but is unable to control pain at home with oral medications, and cramps, while the symptoms have not been associated with syncope. Previous diagnostic tests have included blood typing (A+) and beta human chorionic gonadotropin (35 on Friday, then 46 Friday and 52 Friday evening: WBC normal 9.5K, H&H 13.7/40.7. Tonight Quant is 67 with H&H 12.6/36.5). The patient has experienced no previous abortions in the past. Patient denies any history of STD's or PID. Problem List/Past Medical (Willie Castellano M.D.; 03/11/2017 9:47 AM) No Known Bvjirdll70/17/2017 (Marked as Inactive) Allergies (Willie Castellano M.D.; 03/11/2017 9:47 AM) LATEX Rash. Family History (Willie Castellano M.D.; 03/11/2017 9:47 AM) Asthma Daughter. Breast Cancer Mother. dx age 42 Social History (Willie Castellano M.D.; 03/11/2017 9:47 AM) Alcohol use Occasional alcohol use. No Drug Use Number of Children 1. Tobacco use <5 cigs per day Medication History (Willie Castellano M.D.; 03/11/2017 9:48 AM) Percocet (5-325MG Tablet, 1 Oral every six hours, as needed) Active. No Current Medications (Taken starting 03/11/2017) / History (Willie Castellano M.D.; 03/11/2017 9:48 AM) Deliveries (Parity) 1 Delivery Mode vaginal Pregnancies () 2 Past Surgical History (Willie Castellano M.D.; 03/11/2017 9:48 AM) None03/05/2017 Review of Systems (Willie Castellano M.D.; 03/11/2017 10:15 AM) General Present- Anorexia. Skin Not Present- Rash. HEENT Present- Headache. Neck Not Present- Neck Stiffness. Respiratory Not Present- Shortness of Breath. Cardiovascular Not Present- Chest Pain. Gastrointestinal Present- Bloating and Nausea. Not Present- Constipation, Diarrhea and Vomiting. Female Genitourinary Not Present- Dysuria and Vaginal itching/burning. Musculoskeletal Not Present- Joint Redness. Neurological Not Present- Focal Neurological Symptoms. Hematology Not Present- DVT and Spontaneous Bleeding. Vitals (Julia Huff RN; 03/11/2017 9:57 AM) 03/11/2017 9:28 AM LMP: 01/19/2017 Temp.: 98.8F Pulse: 62 (Regular) Resp.: 16 (Unlabored) BP: 108/66 (Sitting, Left Arm, Standard) Physical Exam (Willie Castellano M.D.; 03/11/2017 10:16 AM) General General Appearance-Appears to be in pain. Head and Neck Neck Global Assessment - full range of motion, No lymphadenopathy. Thyroid Gland Characteristics - normal size and consistency and no palpable nodules. Chest and Lung Exam Chest and lung exam reveals -Clear and quiet, even and easy respiratory effort with no use of accessory muscles. Cardiovascular Cardiovascular examination reveals -normal heart sounds, regular rate and rhythm with no murmurs. Abdomen Inspection Inspection of the abdomen reveals - No Hernias. Contour - No Generalized moderate distention. Palpation/Percussion Palpation and Percussion of the abdomen reveal - Soft and No Rigidity (guarding) . Tenderness - Left Lower Quadrant and Suprapubic. Other Characteristics - No Costovertebral angle tenderness - Left, No Costovertebral angle tenderness - Right. Auscultation Auscultation of the abdomen reveals - Bowel sounds normal. Female Genitourinary External Genitalia Vulva - Characteristics - Non Tender, No Inflammation. Labia Majora - Characteristics - Bilateral - Normal. Perineum - Intact. Clitoris - Normal. Labia Minora - Characteristics - Left - Normal. Right - Normal. Introitus - Characteristics - Non Tender. Discharge - None. Bartholin's Gland - Bilateral - Normal. Urethra - Characteristics - Normal. Urethral Meatus - Characteristics - Normal. Discharge - None. [place] Gland - Bilateral - Normal. Speculum & Bimanual Vagina - Vaginal Lesions - None. Vaginal Mucosa - [place] and [place]. Cervix - Characteristics - No Motion tenderness. Discharge - Scant. Uterus - Characteristics - Tender. Position - Anteverted. Adnexa - Characteristics - Left - Non Tender. Right - Non Tender. Masses - No Adnexal Masses. Bladder - Normal. Rectovaginal Exam - Did not examine. 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 Peripheral Vascular Lower Extremity Palpation - Tenderness - Bilateral - Non Tender. Edema - Bilateral - No edema. Neuropsychiatric Mental status exam performed with findings of-Oriented X3 with appropriate mood and affect. Lymphatic Axillary Supraclavicular Nodes: Bilateral - Supraclavicular Lymph Nodes - No supraclavicular lymphadenopathy. Assessment & Plan (Willie Castellano M.D.; 03/14/2017 11:27 AM) Tubal (O00.10) Impression: Unfortunately attempts at conservative therapy have been unsuccessful due to ongoing pain. If ectopic then must consider rupture as cause of pain as HGB has declined despite the early gestational age and the very low level Quant. Discussed with patient and recommend diagnostic laparoscopy with treatment of possible ectopic , suction curettage if no ectopic. Patient understands and agrees with plan. Current Plans LAPAROSCOPIC EVACUATION OF ECTOPIC (85889) CBC W/ MANUAL DIFFERENTIAL (06228) (To be done 03/18/2017) Quantitative BHCG (94706) (To be done 03/18 2017) Started Oxycodone-Acetaminophen 5-325MG, 1 (one) Tablet every four hours, as needed, #20, 7 days starting 03/12/2017, No Refill. Note:Spoke with patient on 03/14/2017 Reports being pain free and feeling well. Signed by Willie Castellano M.D. (03/14/2017 11:28 AM) [place]
== END 2017-03-12 08:15 | disposition home or self-care (01) ==
LOC: IN 10:22
PROVIDERS: ADMIT Obstetrics & Gynecology; ATTEND Obstetrics & Gynecology
DX: O00.10 Tubal pregnancy without intrauterine pregnancy (principal)
CPT/HCPCS: 36415; 84702; 85025; 86850; 86900; 86901; 96375; 96376; G0378; G0379; J1170; J2250; J2370; J2405; J7120